=== PATIENT | male | born 2000 | race Two or more races ===

== ENCOUNTER 2022-10-29 07:02 | Inpatient (IN) | payer MEDICAID, OTHER ==
[~2022-10-29] VITALS: Ht 167.6 cm; Wt 62.5 kg
[2022-10-29] MEDS ORDERED: DICYCLOMINE HCL 10 MG CAP PO ONE (08:45)
[2022-10-29 09:12] LABS: Hematocrit 45.3 % (41.0-53.0); Hemoglobin 15.4 g/dL (13.5-17.5); Mean Corpuscular Hemoglobin 30.7 pg (28.0-32.0); Mean Corpuscular Hgb Conc. 33.9 g/dL (32.0-36.0); Mean Corpuscular Volume 90.5 fL (80.0-100.0); Red Blood Cells 5.01 10^6/uL (4.5-5.90); Red Cell Distribution Width 13.4 % (11.8-14.3); White Blood Cell 9.6 10^3/uL (4.4-10.8)
[2022-10-29 09:14] LABS: Basophils % (manual) 0 (0.0-2.0); Blast Cells 0; Eosinophils % (manual) 0 (0-7); Myelocytes % 0; Promyelocytes % 0; Reactive Lymphocytes 0
[2022-10-29 10:13] LABS: Alanine Aminotransferase 390 U/L (7-40); Albumin 4.6 g/dL (3.2-4.8); Alkaline Phosphatase 173 U/L (46-116); Anion Gap 7.7 (5-15); Aspartate Aminotransferase 590 U/L (13-40); BUN/Creatinine Ratio 11.6 (10.0-20.0); Blood Urea Nitrogen 11 mg/dL (9-23); Carbon Dioxide 24.3 mmol/L (20-30); Chloride 107 mmol/L (98-107); Glucose 130 mg/dL (74-106); Lipase 43 U/L (12-53); Potassium 3.8 mmol/L (3.5-5.1); Sodium 139 mmol/L (136-145)
[2022-10-29 10:14] LABS: Bilirubin, Total 1.7 mg/dL (0.2-1.0); Total Protein 7.7 g/dL (5.7-8.2)
[2022-10-29 10:59] LABS: Urine Bacteria NONE SEEN /hpf (None Seen); Urine Blood Negative /uL (Negative); Urine Clarity Clear (Clear); Urine Color Yellow (Yellow); Urine Mucus FEW (None Seen); Urine Protein, UAD Negative (Negative); Urine Specific Gravity 1.027 (1.001-1.035); Urine Urobilinogen Normal (Negative); Urine WBC 2 /hpf (0 - 3); Urine pH 5.5 (5.0-8.0)
[2022-10-29 11:29] LABS: Band Neutrophils % (manual) 15; Lymphocytes % (manual) 7 (10.0-50.0); Metamyelocytes % 1; Monocytes % (manual) 2 (0-12)
[2022-10-29 11:30] LABS: Platelet Estimate Adequate
[2022-10-29] MEDS ORDERED: SODIUM CHLORIDE 0.9% 1,000 ML IV ONE (11:30)
[2022-10-29] MEDS ORDERED: ONDANSETRON HCL 4 MG/2 ML VIAL IV ONE (11:30)
[2022-10-29] MEDS ORDERED: KETOROLAC TROMETH 30 MG/ML 1ML VIAL IV ONE (11:45)
[2022-10-29 12:03] LABS: Amphetamine Screen, Urine Neg (NEGATIVE); Benzodiazephine Screen, Urine Neg (NEGATIVE)
[2022-10-29 12:04] LABS: Barbiturate Scree,Urine Neg (NEGATIVE); Cannabinoid Screen, Urine Neg (NEGATIVE); Cocaine Screen, Urine Neg (NEGATIVE); Opiate Scree,Urine Neg (NEGATIVE); Phencyclidine Screen, Urine Neg (NEGATIVE)
[2022-10-29] MEDS ORDERED: DOCUSATE SOD 100 MG CAP PO PRN (12:30)
[2022-10-29] MEDS ORDERED: ONDANSETRON HCL 4 MG/2 ML VIAL IV PRN (12:30)
[2022-10-29] MEDS ORDERED: MORPHINE SULFATE INJ 2 MG/ml SYRG IV PRN (12:30)
[2022-10-29] MEDS: SODIUM CHLORIDE 0.9% 1,000 ML IV SCH ×2 (13:22→20:59)
[2022-10-29 13:27] LABS: INR 1.23 (0.9-1.15); Prothrombin Time 12.7 sec (9.3-11.8)
[2022-10-29] MEDS: metroNIDAZOLE 500MG/100ML 100 ML IV SCH (15:01)
[2022-10-30] VITALS (7 sets, daily range): BP systolic 110–128; BP diastolic 58–66; PULSE 54–74; RESP 16–20; TEMP 97.4–99.1; O2SAT 96–99
[2022-10-30] MEDS ORDERED: NORPTMEDS CO (01:12)
[2022-10-30] MEDS: SODIUM CHLORIDE 0.9% 1,000 ML IV SCH ×2 (05:10→21:50)
[2022-10-30] MEDS: metroNIDAZOLE 500MG/100ML 100 ML IV SCH ×4 (06:00→22:40)
[2022-10-30 06:40] LABS: Basophils # (auto) 0 10 ^3/uL (0-0.2); Basophils % (auto) 0.4 % (0.0-2.0); Eosinophils # (auto) 0.1 10 ^3/uL (0-0.8); Eosinophils % (auto) 1.1 % (0.0-7.0); Hematocrit 40.4 % (41.0-53.0); Hemoglobin 13.7 g/dL (13.5-17.5); Lymphocytes # (auto) 2.1 10 ^3/uL (0.4-5.4); Lymphocytes % (auto) 36.8 % (10.0-50.0); Mean Corpuscular Hgb Conc. 33.9 g/dL (32.0-36.0); Mean Corpuscular Volume 91.5 fL (80.0-100.0); Monocytes # (auto) 0.6 10 ^3/uL (0-1.3); Monocytes % (auto) 10.2 % (0.0-12.0); Neutrophils # (auto) 2.9 10 ^3/uL (1.6-8.6); Neutrophils % (auto) 51.5 % (37.0-80.0); Nucleated Red Blood Cells % 0.3 %; Red Blood Cells 4.41 10^6/uL (4.5-5.90); Red Cell Distribution Width 13.1 % (11.8-14.3); White Blood Cell 5.6 10^3/uL (4.4-10.8)
[2022-10-30] MEDS ORDERED: ceFAZolin 1GM/50ML 100 ML IV ONE (06:41)
[2022-10-30 06:43] LABS: Alanine Aminotransferase 459 U/L (7-40); Albumin 3.7 g/dL (3.2-4.8); Alkaline Phosphatase 140 U/L (46-116); Anion Gap 5.1 (5-15); Aspartate Aminotransferase 319 U/L (13-40); BUN/Creatinine Ratio 8.6 (10.0-20.0); Bilirubin, Total 1.3 mg/dL (0.2-1.0); Blood Urea Nitrogen 8 mg/dL (9-23); Calcium 8.8 mg/dL (8.7-10.4); Carbon Dioxide 24.9 mmol/L (20-30); Chloride 111 mmol/L (98-107); Glucose 95 mg/dL (74-106); Potassium 4.4 mmol/L (3.5-5.1); Sodium 141 mmol/L (136-145); Total Protein 6.2 g/dL (5.7-8.2)
[2022-10-30] MEDS ORDERED: SUCCINYLCHOLINE CHLORIDE 20 MG/ML 10ML VIAL IV ONE (07:00)
[2022-10-30] MEDS ORDERED: ROCURONIUM 10MG/ML 10ML VIAL IV ONE (07:00)
[2022-10-30] MEDS ORDERED: LIDOCAINE W/ EPINEPHRINE 1% 20ML VIAL ONE (07:05)
[2022-10-30] MEDS ORDERED: BUPIVACAINE 0.5% P/F INJ 10 ML VIAL ONE (07:06)
[2022-10-30] MEDS ORDERED: GLYCOPYRROLATE 0.2 MG/ML 1ML VIAL ONE (07:10)
[2022-10-30] MEDS ORDERED: NEOSTIGMINE 1 MG/ML INJ (10mg/10ML VIAL) ONE (07:10)
[2022-10-30] MEDS ORDERED: fentaNYL CITRATE 100 MCG/2 ML VL ONE (07:10)
[2022-10-30] MEDS ORDERED: MEPERIDINE HCL (25 MG/ML) 1ML VIAL ONE (07:10)
[2022-10-30] MEDS ORDERED: SODIUM CHLORIDE LOCK 10 ML ONE (07:10)
[2022-10-30] MEDS ORDERED: ONDANSETRON HCL 4 MG/2 ML VIAL ONE (07:10)
[2022-10-30] MEDS ORDERED: MIDAZOLAM HCL 2MG/2ML 2ml VIAL (1mg/ml) ONE (07:10)
[2022-10-30] MEDS ORDERED: METOCLOPRAMIDE HCL 5MG/ml INJ 2ml VIAL IV PRN (07:30)
[2022-10-30] MEDS ORDERED: HYDROmorphone HCL 2 MG/ML VL/or syr IV PRN ×3 (07:30→09:00)
[2022-10-30] MEDS ORDERED: MORPHINE SULFATE INJ 2 MG/ml SYRG IV PRN (07:30)
[2022-10-30] MEDS ORDERED: ACETAMINOPHEN/CODEINE#3 (300/30mg) TAB PO PRN (09:00)
[2022-10-30] MEDS: PANTOPRAZOLE 40 MG/10 ML VIAL INJ IV SCH (11:08)
[2022-10-30] MEDS: cefTRIAXone 1GM/50ML D5W 50 ML IV SCH (11:08)
[2022-10-30] MEDS: D5W/SOD CHL 0.45%/KCL 20MEQ 1,000 ML IV SCH ×2 (12:24→19:00)
[2022-10-30] MEDS: SUCRALFATE 1 GM/10 ML ORAL SUSP PO SCH (22:00)
[2022-10-31 05:00] VITALS: BP 117/61; PULSE 50; RESP 17; TEMP 98.4; O2SAT 93
[2022-10-31] MEDS: D5W/SOD CHL 0.45%/KCL 20MEQ 1,000 ML IV SCH ×2 (05:06→15:00)
[2022-10-31] MEDS: SUCRALFATE 1 GM/10 ML ORAL SUSP PO SCH ×2 (06:13→11:30)
[2022-10-31] MEDS: metroNIDAZOLE 500MG/100ML 100 ML IV SCH ×2 (06:13→14:00)
[2022-10-31] MEDS ORDERED: MET500T PO (07:54)
[2022-10-31] MEDS ORDERED: LEVO500T91 PO (07:54)
[2022-10-31] MEDS ORDERED: TRAM50TA2 PO (07:54)
[2022-10-31 09:18] VITALS: BP 120/69; PULSE 52; RESP 18; TEMP 97.8; O2SAT 99
[2022-10-31] MEDS: cefTRIAXone 1GM/50ML D5W 50 ML IV SCH (10:07)
[2022-10-31] MEDS: PANTOPRAZOLE 40 MG/10 ML VIAL INJ IV SCH (10:07)
[2022-10-31 10:35] LABS: Basophils # (auto) 0 10 ^3/uL (0-0.2); Basophils % (auto) 0.2 % (0.0-2.0); Eosinophils # (auto) 0 10 ^3/uL (0-0.8); Eosinophils % (auto) 0.2 % (0.0-7.0); Hematocrit 41.2 % (41.0-53.0); Hemoglobin 14.1 g/dL (13.5-17.5); Lymphocytes # (auto) 1.8 10 ^3/uL (0.4-5.4); Lymphocytes % (auto) 21.3 % (10.0-50.0); Mean Corpuscular Hemoglobin 30.6 pg (28.0-32.0); Mean Corpuscular Hgb Conc. 34.2 g/dL (32.0-36.0); Mean Corpuscular Volume 89.4 fL (80.0-100.0); Monocytes # (auto) 0.7 10 ^3/uL (0-1.3); Monocytes % (auto) 8.4 % (0.0-12.0); Neutrophils % (auto) 69.9 % (37.0-80.0); Nucleated Red Blood Cells % 0.2 %; Red Blood Cells 4.61 10^6/uL (4.5-5.90); Red Cell Distribution Width 12.8 % (11.8-14.3); White Blood Cell 8.6 10^3/uL (4.4-10.8)
[2022-10-31 10:51] LABS: Alanine Aminotransferase 306 U/L (7-40); Albumin 3.6 g/dL (3.2-4.8); Alkaline Phosphatase 107 U/L (46-116); Anion Gap 5.2 (5-15); Aspartate Aminotransferase 118 U/L (13-40); BUN/Creatinine Ratio 6.7 (10.0-20.0); Blood Urea Nitrogen 6 mg/dL (9-23); Calcium 8.7 mg/dL (8.5-10.1); Carbon Dioxide 25.8 mmol/L (20-30); Chloride 109 mmol/L (98-107); Glucose 104 mg/dL (74-106); Potassium 3.9 mmol/L (3.5-5.1); Sodium 140 mmol/L (136-145)
[2022-10-31 10:52] LABS: Bilirubin, Total 0.9 mg/dL (0.2-1.0); Total Protein 6.3 g/dL (5.7-8.2)
[2022-10-31 12:54] VITALS: BP 110/55; PULSE 59; RESP 18; TEMP 98.3; O2SAT 98
== END 2022-10-31 16:07 | disposition home or self-care (01) | DRG 263 ==
LOC: ER 07:02 → OVERFLOW 12:37 → CENTRAL 21:36
PROVIDERS: ADMIT Nurse Practitioner Family; ATTEND Family Medicine
PROC: 0FT44ZZ Resection of Gallbladder, Percutaneous Endoscopic Approach (ICD-10-PCS; principal; 2022-10-30 07:41)
DX: K80.00 Calculus of gallbladder with acute cholecystitis without obstruction (principal); E86.0 Dehydration; R19.7 Diarrhea, unspecified; R74.01 Elevation of levels of liver transaminase levels
CPT/HCPCS: 36415; 74176; 76705; 78226; 80053; 80074; 80307; 80320; 81001; 83690; 85007; 85025; 85027; 85610; 86704; 86706; 86708; 86803; 86850; 86900; 86901; 87340; 96361; 96365; 96375; C9113; G0378; J0330; J0690; J0696; J1885; J2250; J2405; J3490